=== PATIENT | male | born 1995 | race Caucasian/White ===

== ENCOUNTER 2017-03-03 13:51 | Emergency (ER) | payer OTHER ==
[~2017-03-03] VITALS: Ht 182.9 cm; Wt 72.5 kg
[2017-03-03 13:55] VITALS: BP 168/91; PULSE 148; RESP 28; TEMP 99; O2SAT 28
[2017-03-03] MEDS ORDERED: SODIUM CHLOR 0.9% 1000 ML INJ 1,000 ML IV SCH (14:55)
--- NOTE | 2017-03-03 14:59 | PD ---
HPI Chief Complaint: GI Complaint Time Seen by Provider: 14:54 Travel History International Travel<30 days: No Contact w/Intl Traveler<30days: No Traveled to known affect area: No History of Present Illness HPI 21-year-old male with history of heroin use and alcohol abuse, presents to the ER today because he has had intermittent episodes of nausea and vomiting for several weeks, states that he got worse today, he is vomiting up multiple episodes of dark red blood. He states he always has diarrhea but has not yet nose any black stools or blood in the stools. He states that he gets abdominal discomfort and then vomiting, is not having current abdominal pain. He denies any fevers or any other symptoms. Modifying Factors: None Associated Signs & Symptoms: Nausea, vomiting, abdominal cramping and diarrhea, blood in the vomit Risk Factors: Alcohol use PFSH Past Medical History Medical History: Denies Significant Hx Past Surgical History Surgical History: No Previous Surgery Social History Tobacco Use: No Allergies-Medications (Allergen,Severity, Reaction): Coded Allergies: No Known Allergies (Unverified , 03/03/17) Review of Systems Except as stated in HPI: all other systems reviewed are Neg Physical Exam Narrative GENERAL: Well-developed anxious appearing young white male patient who appears tremulous. Awake and oriented 3. SKIN: Focused skin assessment warm/dry. HEAD: Atraumatic. Normocephalic. EYES: Pupils equal and round. No scleral icterus. No injection or drainage. ENT: No nasal bleeding or discharge. Mucous membranes pink and moist. NECK: Trachea midline. No JVD. CARDIOVASCULAR: Regular rate and rhythm. No murmur appreciated. RESPIRATORY: No accessory muscle use. Clear to auscultation. Breath sounds equal bilaterally. GASTROINTESTINAL: Abdomen soft, moderate epigastric tenderness without guarding or rebound, nondistended. Hepatic and splenic margins not palpable. MUSCULOSKELETAL: No obvious deformities. No clubbing. No cyanosis. No edema. NEUROLOGICAL: Awake and alert. No obvious cranial nerve deficits. Motor grossly within normal limits. Normal speech. PSYCHIATRIC: Appropriate mood and affect; insight and judgment normal. Data Data Last Documented VS Vital Signs Date Time Temp Pulse Resp B/P Pulse Ox O2 Delivery O2 Flow Rate FiO2 03/03/17 15:14 83 22 135/77 95 Nasal Cannula 2 03/03/17 13:55 99.0 Orders Complete Blood Count With Diff (03/03/17 14:55) Comprehensive Metabolic Panel (03/03/17 14:55) Lipase (03/03/17 14:55) Prothrombin Time / Inr (Pt) (03/03/17 14:55) Act Partial Throm Time (Ptt) (03/03/17 14:55) Alcohol (Ethanol) (03/03/17 14:55) Type And Screen (03/03/17 14:55) Abdomen, Flat & Upright (03/03/17 14:55) Ecg Monitoring (03/03/17 14:55) Iv Access Insert/Monitor (03/03/17 14:55) Oximetry (03/03/17 14:55) Ondansetron Inj (Zofran Inj) (03/03/17 15:00) Pantoprazole Inj (Protonix Inj) (03/03/17 15:00) Sodium Chlor 0.9% 1000 Ml Inj (Ns 1000 M (03/03/17 14:55) Sodium Chloride 0.9% Flush (Ns Flush) (03/03/17 15:00) Lorazepam Inj (Ativan Inj) (03/03/17 15:00) Ct Abd/Pel W Iv Contrast(Rout) (03/03/17 16:29) Iohexol 350 Inj (Omnipaque 350 Inj) (03/03/17 17:28) Labs Laboratory Tests Test 03/03/17 15:00 White Blood Count 8.4 TH/MM3 Red Blood Count 4.60 MIL/MM3 Hemoglobin 15.8 GM/DL Hematocrit 45.8 % Mean Corpuscular Volume 99.5 FL Mean Corpuscular Hemoglobin 34.3 PG Mean Corpuscular Hemoglobin 34.4 % Concent Red Cell Distribution Width 12.5 % Platelet Count 203 TH/MM3 Mean Platelet Volume 9.5 FL Neutrophils (%) (Auto) 82.6 % Lymphocytes (%) (Auto) 8.2 % Monocytes (%) (Auto) 8.2 % Eosinophils (%) (Auto) 0.7 % Basophils (%) (Auto) 0.3 % Neutrophils # (Auto) 7.0 TH/MM3 Lymphocytes # (Auto) 0.7 TH/MM3 Monocytes # (Auto) 0.7 TH/MM3 Eosinophils # (Auto) 0.1 TH/MM3 Basophils # (Auto) 0.0 TH/MM3 CBC Comment DIFF FINAL Differential Comment Prothrombin Time 10.7 SEC Prothromb Time International 1.0 RATIO Ratio Activated Partial 27.1 SEC Thromboplast Time Sodium Level 139 MEQ/L Potassium Level 3.6 MEQ/L Chloride Level 98 MEQ/L Carbon Dioxide Level 28.4 MEQ/L Anion Gap 13 MEQ/L Blood Urea Nitrogen 8 MG/DL Creatinine 0.86 MG/DL Estimat Glomerular Filtration 110 ML/MIN Rate Random Glucose 128 MG/DL Calcium Level 10.6 MG/DL Total Bilirubin 1.2 MG/DL Aspartate Amino Transf 92 U/L (AST/SGOT) Alanine Aminotransferase 89 U/L (ALT/SGPT) Alkaline Phosphatase 71 U/L Total Protein 8.3 GM/DL Albumin 4.9 GM/DL Lipase 118 U/L Ethyl Alcohol Level LESS THAN 3 MG/DL Blood Type A POSITIVE Antibody Screen NEGATIVE MDM Medical Decision Making Medical Screen Exam Complete: Yes Emergency Medical Condition: Yes Medical Record Reviewed: Yes Interpretation(s) Laboratory Tests Test 03/03/17 15:00 Mean Corpuscular Hemoglobin 34.3 PG (27.0-34.0) Neutrophils (%) (Auto) 82.6 % (16.0-70.0) Lymphocytes (%) (Auto) 8.2 % (9.0-44.0) Monocytes (%) (Auto) 8.2 % (0.0-8.0) Lymphocytes # (Auto) 0.7 TH/MM3 (1.0-4.8) Random Glucose 128 MG/DL (74-106) Calcium Level 10.6 MG/DL (8.5-10.1) Total Bilirubin 1.2 MG/DL (0.2-1.0) Aspartate Amino Transf 92 U/L (15-37) (AST/SGOT) Alanine Aminotransferase 89 U/L (12-78) (ALT/SGPT) Total Protein 8.3 GM/DL (6.4-8.2) Last 24 hours Impressions Abdomen X-Ray 03/03/17 [id number] Signed Impressions: Service Date/Time: February 15:53 - CONCLUSION: Unremarkable bowel gas pattern. Chris Tabares MD Differential Diagnosis Nausea, vomiting, abdominal pains, diarrhea, blood in the vomitgastritis versus gastroenteritis versus GI bleeding versus pancreatitis versus alcohol withdrawal versus opiate withdrawal versus dehydration versus metabolic issues Narrative Course Patient was given Ativan for alcohol withdrawal and his tremors and tachycardia went away. Patient admits he has had DTs in the past. Lab work shows liver enzyme elevations likely secondary to alcohol abuse. CAT scan did not reveal any signs of acute processes. At this point, I have talked to the patient regarding his issues and have offered to admit him for alcohol withdrawal and GI bleed. There is concern about worsening and GI bleeding as well as withdrawal symptoms. However, he is refusing at this time. I have also suggested rehabilitation for him but he is also declining because he states that he had to pay for rehabilitation before and he owes $47,000 which she cannot pay. At this point, he is awake, alert, oriented 3. I have talked him about possible risk of DTs and , worsening and GI bleed and morbidities. However, he states understanding and does not want to stay in the hospital either for further evaluation and observation. He will need to follow-up with a GI doctor as an outpatient regarding this issue. He will need further rehabilitation help. Patient states understanding and wants to be released. He should return for any worsening in symptoms as necessary. Diagnosis Primary Impression: GI bleeding Additional Impressions: Alcohol withdrawal Opiate withdrawal Referrals: Alvin Dubon MD Med/Other Pt SpecificInfo: Prescription(s) given Scripts Ondansetron Odt (Zofran Odt)4 Mg Tab4 Mg SL Q6HR PRN (Nausea/Vomiting) #12 TAB Ref 0 Prov:Karoline Pearce MD 03/03/17 Chlordiazepoxide 25 Mg Cap25 Mg PO QID PRN (Anxiety) #30 CAP Ref 0 Prov:Karoline Pearce MD 03/03/17 Pantoprazole (Protonix)40 Mg Tab40 Mg PO DAILY #30 TAB Ref 0 Prov:Karoline Pearce MD 03/03/17 Disposition: 01 DISCHARGE HOME Condition: Stable Karolien Pearce MD Mar 03, 2017 14:59
[2017-03-03] MEDS ORDERED: SODIUM CHLORIDE 0.9% FLUSH 10 ML FLUSH IVF PRN (15:00)
[2017-03-03] MEDS ORDERED: PANTOPRAZOLE SODIUM 40 MG VIAL IVP ONE (15:00)
[2017-03-03] MEDS ORDERED: ONDANSETRON HCL 4 MG/2 ML VIAL IVP ONE (15:00)
[2017-03-03] MEDS ORDERED: LORazepam 2 MG/ML VIAL IV PUSH ONE (15:00)
[2017-03-03 15:01] VITALS: O2SAT 93
[2017-03-03 15:14] VITALS: BP 135/77; PULSE 83; RESP 22; O2SAT 95
[2017-03-03 15:30] LABS: BASOPHIL % 0.3 % (0.0-2.0); EOSINOPHIL # 0.1 TH/MM3 (0-0.4); EOSINOPHIL % 0.7 % (0.0-4.0); HEMATOCRIT 45.8 % (39.0-51.0); HEMO FLAGS DIFF FINAL; LYMPH % 8.2 % (9.0-44.0); LYMPHOCYTE # 0.7 TH/MM3 (1.0-4.8); MEAN CELL VOLUME 99.5 FL (80.0-100.0); MEAN CORPUSCULAR HEMOGLOBIN 34.3 PG (27.0-34.0); MEAN CORPUSCULAR HGB CONC 34.4 % (32.0-36.0); MONO % 8.2 % (0.0-8.0); NEUT % 82.6 % (16.0-70.0); PLATELET COUNT 203 TH/MM3 (150-450); RED CELL DISTRIBUTION WIDTH 12.5 % (11.6-17.2); WHITE BLOOD COUNT 8.4 TH/MM3 (4.0-11.0)
[2017-03-03 15:51] LABS: ALT (GPT) 89 U/L (12-78); ANION GAP 13 MEQ/L (5-15); APTT (PATIENT) 27.1 SEC (24.3-30.1); AST (GOT) 92 U/L (15-37); BICARBONATE 28.4 MEQ/L (21.0-32.0); BLOOD UREA NITROGEN 8 MG/DL (7-18); CHLORIDE 98 MEQ/L (98-107); GLOMERULAR FILTRATION RATE 110 ML/MIN (>89); POTASSIUM 3.6 MEQ/L (3.5-5.1); PROTHROMBIN TIME - PATIENT 10.7 SEC (9.8-11.6); SODIUM (NA) 139 MEQ/L (136-145)
[2017-03-03 15:54] LABS: ALKALINE PHOSPHATASE 71 U/L (45-117); TOTAL BILIRUBIN ADULT 1.2 MG/DL (0.2-1.0)
--- NOTE | 2017-03-03 16:28 | RADRPT ---
EXAM DATE/TIME: 03/03/2017 15:53 [facility] COMPARISON: No previous studies available for comparison. INDICATIONS : Vomiting blood. MEDICAL HISTORY : None. SURGICAL HISTORY : None. ENCOUNTER: Initial ACUITY: 1 day PAIN SCORE: 6/10 LOCATION: Right abdomen. FINDINGS: Supine and upright views of the abdomen were performed. The abdominal bowel gas pattern is normal. No air fluid levels are seen. No abnormal masses, calcifications, or organomegaly is seen. The visu alized lower lungs are clear. No evidence of free intraperitoneal gas. The osseous structures are u nremarkable. CONCLUSION: Unremarkable bowel gas pattern. Chris Tabares MD on March 03, 2017 at 16:26 Board Certified Radiologist. This report was verified electronically.
[2017-03-03] MEDS ORDERED: IOHEXOL 350 MG/ML 10 ML VIAL (for RAD DIAG) IV ONE (17:28)
--- NOTE | 2017-03-03 17:37 | RADRPT ---
EXAM DATE/TIME: 03/03/2017 17:17 [facility] COMPARISON: No previous studies available for comparison. INDICATIONS : Vomiting dark red blood IV CONTRAST: 100 cc Omnipaque 350 (iohexol) IV ORAL CONTRAST: No oral contrast ingested. RADIATION DOSE: 9.96 CTDIvol (mGy) MEDICAL HISTORY : None SURGICAL HISTORY : None. ENCOUNTER: Initial ACUITY: 1 day PAIN SCALE: 6/10 LOCATION: Abdomen TECHNIQUE: Volumetric scanning of the abdomen and pelvis was performed. Using automated exposure control and ad justment of the mA and/or kV according to patient size, radiation dose was kept as low as reasonably achievable to obtain optimal diagnostic quality images. FINDINGS: LOWER LUNGS: The visualized lower lungs are clear. LIVER: Homogeneous density without lesion. There is no dilation of the biliary tree. No calcified gallston es. There is moderate hepatic steatosis. The gallbladder is unremarkable. SPLEEN: Normal size without lesion. PANCREAS: Within normal limits. KIDNEYS: Normal in size and shape. There is no mass, stone or hydronephrosis. ADRENAL GLANDS: Within normal limits. VASCULAR: There is no aortic aneurysm. BOWEL/MESENTERY: The stomach, small bowel, and colon demonstrate no acute abnormality. There is no free intraperitone al air or fluid. ABDOMINAL WALL: Within normal limits. RETROPERITONEUM: There is no lymphadenopathy. BLADDER: No wall thickening or mass. REPRODUCTIVE: Within normal limits. INGUINAL: There is no lymphadenopathy or hernia. MUSCULOSKELETAL: Within normal limits for patient age. CONCLUSION: 1. 1.gas pattern is unremarkable with no inflammatory change or obstruction. No oral contrast was giv en limiting the sensitivity. 2. Moderate hepatic steatosis. 3. Unremarkable gallbladder. Chris Tabares MD on March 03, 2017 at 17:33 Board Certified Radiologist. This report was verified electronically.
[2017-03-03] MEDS ORDERED: PROT40TA PO (17:45)
[2017-03-03] MEDS ORDERED: ZOFR4TAB3 SL (17:45)
[2017-03-03] MEDS ORDERED: CHLO25CA2 PO (17:45)
[2017-03-03 18:25] VITALS: BP 124/74; PULSE 95; RESP 24; O2SAT 98
== END 2017-03-03 19:16 | disposition home or self-care (01) ==
LOC: NEPC 13:51
DX: K92.2 Gastrointestinal hemorrhage, unspecified (principal); F11.23 Opioid dependence with withdrawal; R00.0 Tachycardia, unspecified; G25.1 Drug-induced tremor
CPT/HCPCS: 74020; 74177; 80053; 80307; 83690; 85025; 85610; 85730; 86850; 86900; 86901; 96361; 96374; 96375; 99285; C9113; J2060; J2405; J7030; Q9967

== ENCOUNTER 2017-05-13 13:19 | Emergency (ER) | payer OTHER ==
[~2017-05-13] VITALS: Ht 182.9 cm; Wt 75.0 kg
[~2017-05-13 13:19] MED LIST: CHLO25CA2 PO; PROT40TA PO; ZOFR4TAB3 SL
[2017-05-13 13:21] VITALS: BP 145/86; PULSE 148; RESP 24; TEMP 98.8; O2SAT 98
--- NOTE | 2017-05-13 13:41 | PD ---
Physical Exam Time Seen by Provider: 13:37 Narrative 21yo M c/o alcohol withdrawal. Trind to drink alcohol 1 hour ago and has been vomiting all morning. Says he doesn't want to start seizing; has hx of seizing from withdrawal. Repots smoking marijuana. HR elevated 140-170 in triage. Patient seen in triage. VS reviewed. Patient to med bed from triage. Data Data Last Documented VS Vital Signs Date Time Temp Pulse Resp B/P Pulse Ox O2 Delivery O2 Flow Rate FiO2 05/13/17 13:21 98.8 148 24 145/86 98 Room Air MDM Supervised Visit with ROLAND: Cherry Onofre May 13, 2017 13:41
[2017-05-13] MEDS ORDERED: SODIUM CHLOR 0.9% 1000 ML INJ 1,000 ML IV SCH ×2 (13:48)
--- NOTE | 2017-05-13 13:52 | PD ---
HPI Chief Complaint: Alcohol/Drug Intoxication Time Seen by Provider: 13:39 Travel History International Travel<30 days: No Contact w/Intl Traveler<30days: No Traveled to known affect area: No History of Present Illness HPI This is a 21-year-old male alcoholic who presents for evaluation nausea, vomiting, withdrawal symptoms. Past 3 days he's had nausea and vomiting. 3-5 episodes of emesis daily. Nonbloody. He reports severe withdrawal symptoms when he does not drink. He typically drinks about 16 0 today. This morning he had no beer at home. He went to go buy some at the store and when he drank it he vomited it up. He is currently having some tremors and nausea. He denies any acute abdominal pain. He endorses chronic diarrhea. Denies any chest pain or shortness of breath, palpitations. He reports a history of withdrawal seizures in the past. He has no other complaints. [facility] Past Medical History Anxiety: Yes Depression: Yes Past Surgical History Other Surgery: Yes (COLONOSCOPY) Social History Alcohol Use: Yes (8-12 BEERS DAILY) Tobacco Use: No Substance Use: Yes (HEROIN, POT) Allergies-Medications (Allergen,Severity, Reaction): Coded Allergies: No Known Allergies (Unverified , 05/13/17) Reported Meds & Prescriptions Reported Meds & Active Scripts Active Zofran (Ondansetron HCl) 4 Mg Tab 4 Mg PO Q6HR PRN Chlordiazepoxide HCl 25 Mg Capsule 1 Tab PO Q3HR NEB PRN Review of Systems Except as stated in HPI: all other systems reviewed are Neg Physical Exam Narrative GENERAL: Well-developed well-nourished male who is anxious, tremulous, tachycardic. SKIN: Warm and dry. HEAD: Atraumatic. Normocephalic. EYES: Pupils equal and round. No scleral icterus. No injection or drainage. ENT: No nasal bleeding or discharge. Mucous membranes pink and moist. NECK: Trachea midline. No JVD. CARDIOVASCULAR: Regular rate and rhythm. No murmur appreciated. RESPIRATORY: No accessory muscle use. Clear to auscultation. Breath sounds equal bilaterally. GASTROINTESTINAL: Abdomen soft, mild epigastric tenderness no guarding. MUSCULOSKELETAL: No obvious deformities. No edema. NEUROLOGICAL: Awake and alert. No obvious cranial nerve deficits. Motor grossly within normal limits. Normal speech. PSYCHIATRIC: Appropriate mood and affect; insight and judgment normal. Data Data Last Documented VS Vital Signs Date Time Temp Pulse Resp B/P Pulse Ox O2 Delivery O2 Flow Rate FiO2 05/13/17 14:06 94 16 133/90 100 Room Air 05/13/17 13:21 98.8 Orders Complete Blood Count With Diff (05/13/17 13:48) Comprehensive Metabolic Panel (05/13/17 13:48) Lipase (05/13/17 13:48) Iv Access Insert/Monitor (05/13/17 13:48) Ecg Monitoring (05/13/17 13:48) Oximetry (05/13/17 13:48) Sodium Chlor 0.9% 1000 Ml Inj (Ns 1000 M (05/13/17 13:48) Sodium Chloride 0.9% Flush (Ns Flush) (05/13/17 14:00) Electrocardiogram (05/13/17 13:48) Sodium Chlor 0.9% 1000 Ml Inj (Ns 1000 M (05/13/17 13:48) Ondansetron Inj (Zofran Inj) (05/13/17 14:00) Lorazepam Inj (Ativan Inj) (05/13/17 14:00) Alcohol (Ethanol) (05/13/17 13:48) Magnesium (Mg) (05/13/17 13:48) Thiamine Inj (Thiamine Inj) (05/13/17 14:00) Labs Laboratory Tests Test 05/13/17 14:08 White Blood Count 8.9 TH/MM3 Red Blood Count 4.91 MIL/MM3 Hemoglobin 16.6 GM/DL Hematocrit 48.7 % Mean Corpuscular Volume 99.1 FL Mean Corpuscular Hemoglobin 33.8 PG Mean Corpuscular Hemoglobin 34.1 % Concent Red Cell Distribution Width 12.9 % Platelet Count 334 TH/MM3 Mean Platelet Volume 8.0 FL Neutrophils (%) (Auto) 61.8 % Lymphocytes (%) (Auto) 25.3 % Monocytes (%) (Auto) 12.1 % Eosinophils (%) (Auto) 0.5 % Basophils (%) (Auto) 0.3 % Neutrophils # (Auto) 5.5 TH/MM3 Lymphocytes # (Auto) 2.2 TH/MM3 Monocytes # (Auto) 1.1 TH/MM3 Eosinophils # (Auto) 0.0 TH/MM3 Basophils # (Auto) 0.0 TH/MM3 CBC Comment DIFF FINAL Differential Comment Sodium Level 138 MEQ/L Potassium Level 4.0 MEQ/L Chloride Level 102 MEQ/L Carbon Dioxide Level 27.8 MEQ/L Anion Gap 8 MEQ/L Blood Urea Nitrogen 3 MG/DL Creatinine 0.86 MG/DL Estimat Glomerular Filtration 110 ML/MIN Rate Random Glucose 81 MG/DL Calcium Level 9.7 MG/DL Magnesium Level 2.0 MG/DL Total Bilirubin 0.4 MG/DL Aspartate Amino Transf 100 U/L (AST/SGOT) Alanine Aminotransferase 91 U/L (ALT/SGPT) Alkaline Phosphatase 81 U/L Total Protein 8.9 GM/DL Albumin 4.6 GM/DL Lipase 141 U/L Ethyl Alcohol Level 207 MG/DL [facility] Medical Decision Making Medical Screen Exam Complete: Yes Emergency Medical Condition: Yes Medical Record Reviewed: Yes Interpretation(s) EKG reveals sinus rhythm, rate 88 CBC unremarkable CMP AST 100, ALT 91 Alcohol level 207 Differential Diagnosis Dehydration, electrolyte abnormality, alcohol withdrawal, gastritis, pancreatitis, sepsis, SVT, atrial fibrillation Narrative Course 21-year-old alcoholic presents with nausea and vomiting over the past 3 days. On initial examination is tachycardic, tremulous, nauseous. Plan is for basic lab work. He was given 2 L of IV fluids, 2 mg of Ativan, thiamine and 4 mg of Zofran. Upon reexamination the patient feels significantly improved. His heart rate is in the high 80s. His nausea has improved. The plan will be to discharge the patient with a course of Librium for withdrawal symptoms as well as Zofran for nausea. He was given a packet of resources in regards to local rehabilitation centers. He is stable for discharge. Diagnosis Primary Impression: Alcohol withdrawal Qualified Code: F10.230 - Alcohol withdrawal, uncomplicated Referrals: [facility] Additional Instructions: As discussed, Librium for withdrawal symptoms. Quitting alcohol "cold turkey" can have multiple side effects, some severe such as hallucinations, seizures. It is important of follow-up with a rehabilitation center such as [facility] to help facilitate your care. Return for any acutely new or worsening symptoms. Med/Other Pt SpecificInfo: Prescription(s) given Scripts Ondansetron (Zofran)4 Mg Tab4 Mg PO Q6HR PRN (NAUSEA OR VOMITING) #20 TAB Ref 0 Prov:Ulysses Garrison MD 05/13/17 Chlordiazepoxide HCl 25 Mg Capsule1 Tab PO Q3HR NEB PRN (WITHDRAWAL) #30 Prov:Ulysses Garrison MD 05/13/17 Disposition: 01 DISCHARGE HOME Condition: Stable Tha Barrios May 13, 2017 13:52
[2017-05-13] MEDS ORDERED: ONDANSETRON HCL 4 MG/2 ML VIAL IV PUSH ONE (14:00)
[2017-05-13] MEDS ORDERED: LORazepam 2 MG/ML VIAL IV PUSH ONE (14:00)
[2017-05-13] MEDS ORDERED: THIAMINE INJ 100 MG in SODIUM CHLORIDE 0.9% INJ 100 ML IV ONE (14:00)
[2017-05-13] MEDS ORDERED: SODIUM CHLORIDE 0.9% FLUSH 10 ML FLUSH IV FLUSH PRN (14:00)
[2017-05-13 14:06] VITALS: BP 133/90; PULSE 94; RESP 16; O2SAT 100
[2017-05-13 14:18] LABS: AUTOMATED NEUTROPHIL # 5.5 TH/MM3 (1.8-7.7); BASOPHIL % 0.3 % (0.0-2.0); EOSINOPHIL % 0.5 % (0.0-4.0); HEMATOCRIT 48.7 % (39.0-51.0); HEMO FLAGS DIFF FINAL; LYMPH % 25.3 % (9.0-44.0); LYMPHOCYTE # 2.2 TH/MM3 (1.0-4.8); MEAN CELL VOLUME 99.1 FL (80.0-100.0); MEAN CORPUSCULAR HEMOGLOBIN 33.8 PG (27.0-34.0); MEAN CORPUSCULAR HGB CONC 34.1 % (32.0-36.0); MONO % 12.1 % (0.0-8.0); NEUT % 61.8 % (16.0-70.0); PLATELET COUNT 334 TH/MM3 (150-450); RED BLOOD COUNT 4.91 MIL/MM3 (4.50-5.90); RED CELL DISTRIBUTION WIDTH 12.9 % (11.6-17.2); WHITE BLOOD COUNT 8.9 TH/MM3 (4.0-11.0)
[2017-05-13 14:36] LABS: ALKALINE PHOSPHATASE 81 U/L (45-117); ALT (GPT) 91 U/L (12-78); ANION GAP 8 MEQ/L (5-15); AST (GOT) 100 U/L (15-37); BICARBONATE 27.8 MEQ/L (21.0-32.0); BLOOD UREA NITROGEN 3 MG/DL (7-18); CHLORIDE 102 MEQ/L (98-107); GLOMERULAR FILTRATION RATE 110 ML/MIN (>89); SODIUM (NA) 138 MEQ/L (136-145); TOTAL BILIRUBIN ADULT 0.4 MG/DL (0.2-1.0)
[2017-05-13] MEDS ORDERED: CHLO25CA9 PO (15:09)
[2017-05-13] MEDS ORDERED: ZOFR4TAB PO (15:10)
--- NOTE | 2017-05-14 16:43 | EKG ---
Date Performed: 05/13/2017 Time Performed: 14:42:12 PTAGE: 21 years EKG: Sinus rhythm BASELINE ARTIFACT NO PREVIOUS TRACING DOCTOR: Leobardo Lin Interpretating Date/Time 05/14/2017 16:42:06
== END 2017-05-13 15:45 | disposition home or self-care (01) ==
LOC: NEPC 13:19
DX: F10.239 Alcohol dependence with withdrawal, unspecified (principal); R11.2 Nausea with vomiting, unspecified; R19.7 Diarrhea, unspecified; R00.0 Tachycardia, unspecified; F32.9 Major depressive disorder, single episode, unspecified; F41.9 Anxiety disorder, unspecified; Z79.899 Other long term (current) drug therapy
CPT/HCPCS: 80053; 80307; 83690; 83735; 85025; 93005; 96361; 96365; 96375; 99284; J2060; J2405; J3411; J7030

== ENCOUNTER 2018-12-25 15:13 | Inpatient (IN) ==
[2018-12-25] MEDS ORDERED: Sod Chloride 0.9% Inj 1,000 ML IV.SIG SCH (15:45)
--- NOTE | 2018-12-25 16:05 | ED ---
HPI General Chief Complaint: Psychiatric Symptoms Stated Complaint: Psych eval / [facility] Time Seen by Provider: 12/25/18 15:43 Source: patient and police Mode of arrival: other (police) Limitations: no limitations History of Present Illness HPI Narrative: Patient is a 23-year-old male [facility] [place] [facility] for psychiatric evaluation. Patient allegedly made a statement to his sister stating "I am ready to " and that he is feeling suicidal. Allegedly he stated to the officer that 3 days ago he had suicidal thoughts and has had them on and off since he was 6 years old. Patient is unable to determine for himself whether examination is necessary. Patient reports to me that he has felt depressed since he was 6 years old, he has been on antidepressants since age 11. He reports that he always has feelings and thoughts about suicide but would never act on them. He states that if he wanted to he would have killed himself a long time ago. Patient reports that he has plans with his father who is coming to [facility] from [place] tomorrow. He denies any illicit drug use. He does report that he is not sleeping well, he does report eating 3 meals per day however he states he has irritable bowel syndrome and is not sure what he is absorbing. He has no physical complaints at this time. He does report feeling very anxious currently. Patient states he is trialed multiple antidepressants in the past including Celexa, Wellbutrin , Xanax. MD complaint: Reports suicidal ideation and feels depressed Duration: constant and changing over time History of same: Yes Related Data Home Medications Medication Instructions Recorded Confirmed alprazolam 2 mg PO PRN PRN 12/25/18 12/25/18 Allergies Allergy/AdvReac Type Severity Reaction Status Date / Time No Known Allergies Allergy Verified 12/25/18 16:10 Review of Systems ROS: all other systems reviewed are negative [facility] Medical History Medical History Asthma (Acute) IBS (irritable bowel syndrome) (Acute) Anxiety (Acute) Social History Social History Substance History: Active Abuse Second Hand Smoke Exposure: Yes Smoking Status: Current every day smoker Tobacco Type: Cigarettes How Often Do You Have a Drink Containing Alcohol: 2 to 4 times a month Recent Travel in [facility] within the Last 8 Weeks: No Recent Out of Country Travel within the Last 8 Weeks: No Substance Abuse Detail Marijuana: Substance Use Status: Active Route Used Substance Abuse: Inhalation Substance Frequency: Once a month Last Used: Last Substance Abuse Comment: "I have panic attacks and it helps" Reason for Use: Calm Down Exam Narrative Exam Narrative: GENERAL: Thin, well-developed, alert male. Appears anxious, no acute distress. SKIN: Focused skin assessment warm/dry. HEAD: Atraumatic. Normocephalic. EYES: Pupils equal and round. No scleral icterus. No injection or drainage. ENT: No nasal bleeding or discharge. Mucous membranes pink and moist. NECK: Trachea midline. No JVD. CARDIOVASCULAR: Tachycardic. No murmur appreciated. RESPIRATORY: No accessory muscle use. Clear to auscultation. Breath sounds equal bilaterally. GASTROINTESTINAL: Abdomen soft, non-tender, nondistended. Hepatic and splenic margins not palpable. MUSCULOSKELETAL: No obvious deformities. No clubbing. No cyanosis. No edema. NEUROLOGICAL: Awake and alert. No obvious cranial nerve deficits. Motor grossly within normal limits. Normal speech. PSYCHIATRIC: Depressed mood and anxious affect; insight and judgment normal. Course Initial Documented Vital Signs Temperature 98.5 F 12/25/18 15:22 Pulse Rate 143 H 12/25/18 15:22 Respiratory Rate 18 12/25/18 15:22 Blood Pressure 112/68 12/25/18 15:22 Pulse Oximetry 100 12/25/18 15:22 Last Documented Vital Signs Temperature 98.7 F 12/27/18 06:03 Pulse Rate 95 H 12/27/18 06:03 Respiratory Rate 17 12/27/18 06:03 Blood Pressure 127/78 12/27/18 06:03 Pulse Oximetry 98 12/27/18 06:03 Medical Decision Making [facility] Narrative Medical decision making narrative: Patient is a 23-year-old male presenting for psychiatric evaluation under [place] act. Patient is tachycardic on arrival, he is anxious appearing. Ativan 1 mg IM ordered. Mental health screening discussed with the patient. Psychiatric screen ordered. Labs reviewed, potassium 3.4, oral replacement ordered. Patient's blood alcohol level 67. Mild transaminitis. At this time patient is medically cleared for psychiatric evaluation. Medical Screen Exam Complete: Yes Emergency Medical Condition: Yes Differential Diagnosis Differential Diagnosis: Mood disorder versus metabolic abnormality versus depression versus suicidal ideations versus other Lab Data Lab results reviewed: Yes I reviewed the patient's lab results. Result diagrams: 12/25/18 15:28 12/25/18 15:28 Lab Results 12/25/18 12/25/18 12/25/18 Range/Units 15:28 15:28 20:00 WBC 6.5 (4.0-11.0) th/mm3 RBC 4.11 L (4.50-5.90) mil/mm3 Hgb 15.0 (13.0-17.0) gm/dL Hct 43.2 (39.0-51.0) % MCV 105.0 H (80.0-100.0) fL MCH 36.5 H (27.0-34.0) pg MCHC 34.7 (32.0-36.0) % RDW 12.1 (11.6-17.2) % Plt Count 266 (150-450) th/mm3 MPV 9.8 (7.0-11.0) fL Neut % (Auto) 37.4 (16.0-70.0) % Lymph % (Auto) 46.9 H (9.0-44.0) % [place] % (Auto) 7.4 (0.0-8.0) % Eos % (Auto) 7.0 H (0.0-4.0) % Baso % (Auto) 1.3 (0.0-2.0) % Neut # (Auto) 2.4 (1.8-7.7) th/mm3 Lymph # (Auto) 3.1 (1.0-4.8) th/mm3 [place] # (Auto) 0.5 (0.0-0.9) th/mm3 Eos # (Auto) 0.5 H (0.0-0.4) th/mm3 Baso # (Auto) 0.1 (0.0-0.2) th/mm3 WBC Differential . Differential Comment Auto diff final Sodium 138 (136-145) meq/L Potassium 3.4 L (3.5-5.1) meq/L Chloride 102 (98-107) meq/L Carbon Dioxide 24.7 (21.0-32.0) meq/L Anion Gap 11 (5-15) meq/L BUN 4 L (7-18) mg/dL Creatinine 0.97 (0.60-1.30) mg/dL Estimated GFR Greater than 89 (>89) mL/min Random Glucose 89 (74-106) mg/dL Calcium 9.5 (8.5-10.1) mg/dL Magnesium 1.9 (1.5-2.5) mg/dL Total Bilirubin 1.2 H (0.2-1.0) mg/dL AST 160 H (15-37) U/L ALT 127 H (12-78) U/L Alkaline Phosphatase 131 H (45-117) U/L Total Protein 8.6 H (6.4-8.2) g/dL Albumin 4.9 (3.4-5.0) g/dL TSH 1.110 (0.358-3.740) uIU/mL Urine Opiates Screen Neg (Neg) Ur Barbiturates Screen Neg (Neg) Ur Amphetamines Screen Neg (Neg) U Benzodiazepines Scrn Pos H (Neg) Urine Cocaine Screen Neg (Neg) U Cannabinoids Screen Pos H (Neg) Serum Alcohol 67 H (0-5) mg/dL Discharge Plan Discharge Disposition Patient Disposition: ED Admit(ED Internal Use Only) Discharge Condition Condition: Stable Discharge Order Discharge Orders: ED Use Only Admit Order (Routine); Ordered 12/25/18 Ordered By: Lukas Vann Discharge Details Diagnosis: Depression, major Physicians Team ED Provider: Kenyetta Mccracken ED Midlevel Provider: Annalee Faiban Primary Care Provider: Primary Care Cami Garza Attending Provider: Naren Diaz Other Providers: KarenrISA High Service Status ED Status: Left Department Discharge Information Discharge Date/Time: 12/25/18 21:50
[2018-12-25] MEDS ORDERED: ALPRAZolam 0.5 MG Tablet PO ONE (16:10)
[2018-12-25 18:16] LABS: Baso # (Auto) 0.1 th/mm3 (0.0-0.2); Baso % (Auto) 1.3 % (0.0-2.0); Eos # (Auto) 0.5 th/mm3 (0.0-0.4); Hematocrit 43.2 % (39.0-51.0); Lymph # (Auto) 3.1 th/mm3 (1.0-4.8); Lymph % (Auto) 46.9 % (9.0-44.0); Mean Corpuscular HGB Conc 34.7 % (32.0-36.0); Mean Corpuscular Hemoglobin 36.5 pg (27.0-34.0); Mean Platelet Volume 9.8 fL (7.0-11.0); Mono # (Auto) 0.5 th/mm3 (0.0-0.9); Mono % (Auto) 7.4 % (0.0-8.0); Neut # (Auto) 2.4 th/mm3 (1.8-7.7); Neut % (Auto) 37.4 % (16.0-70.0); Platelet Count 266 th/mm3 (150-450); Red Blood Count 4.11 mil/mm3 (4.50-5.90); Red Cell Distribution Width 12.1 % (11.6-17.2); White Blood Count 6.5 th/mm3 (4.0-11.0)
[2018-12-25 18:24] LABS: Albumin 4.9 g/dL (3.4-5.0); Anion Gap 11 meq/L (5-15); Aspartate Aminotransferase 160 U/L (15-37); Blood Urea Nitrogen 4 mg/dL (7-18); Calcium 9.5 mg/dL (8.5-10.1); Carbon Dioxide 24.7 meq/L (21.0-32.0); Chloride 102 meq/L (98-107); Glomerular Filtration Rate Greater Than 89 mL/min (>89); Glucose,Random 89 mg/dL (74-106); Magnesium 1.9 mg/dL (1.5-2.5); Potassium 3.4 meq/L (3.5-5.1); Sodium 138 meq/L (136-145)
[2018-12-25 18:25] LABS: Alanine Aminotransferase 127 U/L (12-78)
[2018-12-25 18:34] LABS: Alcohol 67 mg/dL (0-5)
[2018-12-25 18:35] LABS: Alkaline Phosphatase 131 U/L (45-117); Total Protein 8.6 g/dL (6.4-8.2)
--- NOTE | 2018-12-25 18:36 | ED ---
HPI - Psych - General Source: patient, police Mode of arrival: other (police) Limitations: no limitations - History of Present Illness MD complaint: suicidal ideation Duration: constant, changing over time History of same: Yes Relieving factors: none Exacerbating factors: none Context: recent alcohol abuse Associated psychiatric symptoms: none Associated symptoms: denies other symptoms Treatments prior to arrival: none - General Chief Complaint: Psychiatric Symptoms Stated Complaint: Psych eval / [employer] Time Seen by Provider: 12/25/18 15:43 - History of Present Illness HPI Narrative: This patient is a 23 years old male who came into the ED on a Romo act initiated by employment law specialist. According to the patient he had conversations with his sister who is a mental health counselor and living in [place]. During the conversation the patient voiced repeated suicidal ideations and his sister reported the patient's intentions to the police. The police then Romo acted him and brought him to this ED. The patient presents as a slender male male obviously anxious crying and sobbing. He repeatedly denies any suicidal thoughts but stated that he is depressed on all the antidepressant medication that he tried and failed. He is unemployed and is supported by his mother and stated that these enrolled in the [employer] [facility] [employer]. The patient stated that he was first diagnosed with depression at the age of [age] years old and have been struggling with his since. He last took antidepressant medication about 2 months ago after his father dropped him from his health insurance. Patient minimized his alcohol use to twice monthly. His lab report is showing elevated level of AST and ALT reflecting a chronic alcohol use. His urine toxicology was positive for cocaine and benzodiazepine while his alcohol serum level was 67 mg/DL. This patient's speech is fluent and logical not reflecting any thought process disorder. Is feeling tone appears worried and mood is depressed. Patient repeatedly denies any suicidal thoughts. No hyperactivity, lethargy or behavioral disturbances are present. No alcohol withdrawal symptoms observed and patient is placed on CIWA monitoring. The patient denies any pain or any other somatic symptoms. (Lukas Vann) - Related Data Home Medications Medication Instructions Recorded Confirmed alprazolam 2 mg PO PRN PRN 12/25/18 12/25/18 Allergies Allergy/AdvReac Type Severity Reaction Status Date / Time No Known Allergies Allergy Verified 12/25/18 16:10 PMF - History History Provided By: Patient - Medical History Medical History: Medical History (Last Updated 12/25/18 @ 16:10 by Modesta Cadena RN) Asthma IBS (irritable bowel syndrome) Anxiety - Tobacco History Second Hand Smoke Exposure: Yes Tobacco Use In Past 30 Days: Yes Smoking Status: Current every day smoker Tobacco Type: Cigarettes - Alcohol History How Often Do You Have a Drink Containing Alcohol: 2 to 4 times a month - Substance Use History Substance History: Active Abuse - Substance Use Type Marijuana Status: Active Route Used: Inhalation Frequency: Once a month Last Used: Last Reason for Use: Calm Down Comment: "I have panic attacks and it helps" Alcohol Status: Active Route Used: By Mouth Reason for Use: Calm Down Comment: "couple times a month". Patient reports previous "alcohol problem", patient describes drinking "15 drinks in about three days...sometimes it was all 15 drinks in the same day". Patient reports "heavily drinking" from [employer] age 19-19 years old. Other Status: Active Route Used: By Mouth Comment: Patient reports smoking [employer] 7-10 cigarettes per day. - Travel History Recent Travel in the [facility] Within the Last 8 Weeks: No Recent Travel Out of the Country Within the Last 8 Weeks: No - Immunization History Tetanus Immunization: Unsure Psychiatric History - Psychiatric History Psychiatric Treatment History: History of Psychiatric Treatment History of Inpatient Treatment: No Firearms in Home: No - Legal History none (Lukas Vann) - Family Psychiatric History Patient denies any family history of mental illness. (Lukas Vann) Physical Exam - General Limitations: no limitations Mental Status Examination Appearance: Appropriate Consciousness: Alert Orientation: x4 Motor Activity: Normal gait Speech: Unremarkable Language: Adequate Fund of Knowledge: Adequate Memory: Unremarkable Mood: Sad Affect: Sad Thought Process & Associations: Intact, Logical, Goal directed Thought Content: Appropriate Hallucination Type: None Delusion Type: None Suicidal Ideation: No Suicidal Plan: No Suicidal Intention: No Homicidal Ideation: No Homicidal Plan: No Homicidal Intention: No Insight: Fair Judgment: Impulsive Initial Documented Vital Signs Temperature 98.5 F 12/25/18 15:22 Pulse Rate 143 H 12/25/18 15:22 Respiratory Rate 18 12/25/18 15:22 Blood Pressure 112/68 12/25/18 15:22 Pulse Oximetry 100 12/25/18 15:22 Last Documented Vital Signs Temperature 98.6 F 12/26/18 17:48 Pulse Rate 99 H 12/26/18 17:48 Respiratory Rate 20 12/26/18 17:48 Blood Pressure 121/65 12/26/18 17:48 Pulse Oximetry 100 12/26/18 17:48 MDM - Psych - Diagnosis (1) Depression, major Code(s): F32.9 - Major depressive disorder, single episode, unspecified Status : Acute (2) Alcohol-induced mood disorder Code(s): F10.94 - Alcohol use, unspecified with alcohol-induced mood disorder Status: Acute - Lab Data Result diagrams: 12/25/18 15:28 12/25/18 15:28 - MDM Narrative Medical decision making narrative: The patient gave this practitioner permission to meet with his father who was waiting in the lobby. I met with the father and he gave me a grim history of heavy abuse on alcohol and cocaine over the years. The father explain that the patient have exhausted most of the financial and emotional resources that the family had to offer him. His father stated that the patient is a pathological liar and a master of deception. According to him the patient should be enrolled in college for the last 2 years but that he have not done so but accepted the money given to him to be enrolled in school. The the patient father also showed me multiple text messages of the patient stating his suicidal intentions. His father is requesting that patient be admitted for stabilization and in the meantime he and his are looking about long-term hospital placement for him. The patient is receptive to the plan of inpatient admission. The Romo act would be remaining force and the patient will be admitted on the 2600 unit. (Lukas Vann) - Lab Data Lab Results 12/25/18 12/25/18 12/25/18 Range/Units 15:28 15:28 20:00 WBC 6.5 (4.0-11.0) th/mm3 RBC 4.11 L (4.50-5.90) mil/mm3 Hgb 15.0 (13.0-17.0) gm/dL Hct 43.2 (39.0-51.0) % MCV 105.0 H (80.0-100.0) fL MCH 36.5 H (27.0-34.0) pg MCHC 34.7 (32.0-36.0) % RDW 12.1 (11.6-17.2) % Plt Count 266 (150-450) th/mm3 MPV 9.8 (7.0-11.0) fL Neut % (Auto) 37.4 (16.0-70.0) % Lymph % (Auto) 46.9 H (9.0-44.0) % [place] % (Auto) 7.4 (0.0-8.0) % Eos % (Auto) 7.0 H (0.0-4.0) % Baso % (Auto) 1.3 (0.0-2.0) % Neut # (Auto) 2.4 (1.8-7.7) th/mm3 Lymph # (Auto) 3.1 (1.0-4.8) th/mm3 [place] # (Auto) 0.5 (0.0-0.9) th/mm3 Eos # (Auto) 0.5 H (0.0-0.4) th/mm3 Baso # (Auto) 0.1 (0.0-0.2) th/mm3 WBC Differential . Differential Comment Auto diff final Sodium 138 (136-145) meq/L Potassium 3.4 L (3.5-5.1) meq/L Chloride 102 (98-107) meq/L Carbon Dioxide 24.7 (21.0-32.0) meq/L Anion Gap 11 (5-15) meq/L BUN 4 L (7-18) mg/dL Creatinine 0.97 (0.60-1.30) mg/dL Estimated GFR Greater than 89 (>89) mL/min Random Glucose 89 (74-106) mg/dL Calcium 9.5 (8.5-10.1) mg/dL Magnesium 1.9 (1.5-2.5) mg/dL Total Bilirubin 1.2 H (0.2-1.0) mg/dL AST 160 H (15-37) U/L ALT 127 H (12-78) U/L Alkaline Phosphatase 131 H (45-117) U/L Total Protein 8.6 H (6.4-8.2) g/dL Albumin 4.9 (3.4-5.0) g/dL TSH 1.110 (0.358-3.740) uIU/mL Urine Opiates Screen Neg (Neg) Ur Barbiturates Screen Neg (Neg) Ur Amphetamines Screen Neg (Neg) U Benzodiazepines Scrn Pos H (Neg) Urine Cocaine Screen Neg (Neg) U Cannabinoids Screen Pos H (Neg) Serum Alcohol 67 H (0-5) mg/dL
[2018-12-25] MEDS ORDERED: LORazepam 1 MG Tablet PO PRN (19:35)
[2018-12-25] MEDS ORDERED: Haloperidol Inj 5 MG/ML Ampul IV.PUSH PRN (19:35)
[2018-12-25 20:32] LABS: Amphetamine Screen,Urine Neg (Neg); Barbiturate Screen,Urine Neg (Neg); Cannabinoid Screen,Urine Pos (Neg); Cocaine Screen,Urine Neg (Neg)
[2018-12-25 20:33] LABS: Opiate Screen,Urine Neg (Neg)
[2018-12-25] MEDS: Aluminum/Magnesium/Simethacone Susp 30 ML UDC PO PRN (23:37)
[2018-12-26] MEDS: Aluminum/Magnesium/Simethacone Susp 30 ML UDC PO PRN (04:25)
[2018-12-26] MEDS ORDERED: LORazepam 1 MG Tablet PO PRN (07:59)
[2018-12-26] MEDS ORDERED: Haloperidol Inj 5 MG/ML Ampul IV.PUSH PRN (08:08)
[2018-12-26] MEDS: Loperamide 2 MG Capsule PO PRN ×3 (09:17→22:16)
--- NOTE | 2018-12-26 10:43 | P.HPPSY ---
Provisional Diagnosis Admission Date: December 25, 2018 20:49 [place] I.: Alcohol dependent with alcohol induced mood disorder Competence Certification of Person's Competence To Provide Express and Informed Consent I have personally examined Surjit Ann, a person being served at [facility] on, December 26, 2018 1034. Express and informed consent means consent voluntarily given in writing, by a competent person, after sufficient explanation and disclosure of the subject matter involved to enable the person to make a knowing and willful decision without any element of force, fraud, deceit, duress, or other form of constraint or coercion. This person is 18 years of age or older, is not now known to be incompetent to consent to treatment with a guardian advocate, and does not have a health care surrogate or proxy currently making medical treatment decisions. I have found this person to be one of the following: [] Competent to provide express and informed consent, as defined above, for voluntary admission to this facility and is competent to provide express and informed consent for treatment. He/she has the consistent capacity to make well reasoned, willful, and knowing decisions concerning his or her medical or mental health treatment. The person fully and consistently understands the purpose of the admission for examination/placement and is fully capable of personally exercising all rights assured [place] [] Incompetent to provide express and informed consent to voluntary admission, and this is incompetent to provide express and informed consent to treatment. The person must be transferred to involuntary status and a petition for a guardian advocate filed with the Circuit Court. [] Refusing to provide express and informed consent to voluntary admission but is competent to provide express and informed consent for treatment. The person must be discharged or transferred to involuntary status. Form shall be completed within 24 hours of a person's arrival at the receiving facility and filed in the clinical record of each person: 1. Admitted on a voluntary basis 2. Permitted to provide express and informed consent to his/her own treatment 3. Allowed to transfer from involuntary to voluntary status 4. Prior to permitting a person to consent to his or her own treatment after having been previously found incompetent to consent to treatment. History of Present Illness Capacity: Has capacity Chief Complaint: Depressed angry and withdrawal from alcohol History of Present Illness: HPI: Patient is 23-year-old male with a history of possible admissions for intoxication and withdrawal, currently in active withdrawal after his father had him Romo acted to the hospital. The father apparently broke into the patient's place of residence and found the patient intoxicated with a room that indicated that patient was not taking care of himself. He was living with garbage and debris scattered throughout his apartment and was not eating. The patient complains of resenting his father's breaking into his apartment and shows absolutely no appreciation of the father's intent to save his life. Patient has a history of having had delirium tremens and apparently has little interest in altering his way of life at this time. Patient is extremely demanding asking for Zofran for his vomiting asking for Imodium for diarrhea and a nicotine patch. Patient obviously has been through this many times before and does not seem appreciative of any efforts to alter his way of life. - Inpatient Certification I certify that the inpatient services were ordered in accordance with Medicare regulations governing the order. This includes certification that hospital inpatient services are reasonable and necessary and in the case of services not specified as inpatient-only under 42 CFR 419.22(n), that they are appropriately provided as inpatient services in accordance to with the 2-midnight benchmark under 43 CFR 412.3(e) I certify that inpatient psychiatric hospital services are medically necessary. Evaluation and treatment and/or diagnostic testing are expected to improve the patient's condition. The patient needs on a daily basis, active treatment furnished directly by or requiring the supervision of inpatient psychiatric facility personnel. Estimated Total Length of Stay (Days): 7 Plans for Post Hospital Care: Home Review of Systems Nausea and vomiting and diarrhea along with sweating elevated pulse rate and shakiness. PMF - History History Provided By: Patient - Medical History Medical History: Medical History (Last Updated 12/25/18 @ 16:10 by Modesta Cadena RN) Asthma IBS (irritable bowel syndrome) Anxiety - Tobacco History Second Hand Smoke Exposure: No Tobacco Use In Past 30 Days: Yes Smoking Status: Current every day smoker Tobacco Type: Cigarettes - Alcohol History How Often Do You Have a Drink Containing Alcohol: 4 or more times a week - Substance Use History Substance History: Active Abuse - Substance Use Type Marijuana Status: Active Route Used: Inhalation Frequency: Once a month Last Used: Last Reason for Use: Calm Down, Feels Good Comment: "I have panic attacks and it helps" - Travel History Recent Travel in the [facility] Within the Last 8 Weeks: No Recent Travel Out of the Country Within the Last 8 Weeks: No - Immunization History Tetanus Immunization: Unsure Hx Influenza Vaccine This Season: No Medications and Allergies Active Medications: Active Medications Al Hydrox/Mg Hydrox/Simethicone (Mag-Al Plus Susp Liq) 30 ml PO Q6H PRN PRN Reason: DYSPEPSIA Last Admin: 12/26/18 04:25 Dose: 30 ml Flumazenil (Romazicon Inj) 0.2 mg IV.PUSH Q1M PRN PRN Reason: OVERSEDATION Haloperidol Lactate (Haldol Inj) 1 mg IV.PUSH Q15M PRN PRN Reason: for severe agitation Loperamide HCl (Imodium) 2 mg PO Q4H PRN PRN Reason: DIARRHEA Last Admin: 12/26/18 09:17 Dose: 2 mg Lorazepam (Ativan) 2 mg PO Q6H PRN PRN Reason: WITHDRAWAL Lorazepam (Ativan) 1 mg PO Q4H PRN PRN Reason: for CIWA 8-10 Lorazepam (Ativan) 2 mg PO Q2H PRN PRN Reason: for CIWA 11-14 Last Admin: 12/26/18 08:34 Dose: 2 mg Lorazepam (Ativan Inj) 2 mg IV.PUSH Q2H PRN PRN Reason: for CIWA 11-14 Lorazepam (Ativan Inj) 2 mg IV.PUSH Q1H PRN PRN Reason: for CIWA 15-20 Lorazepam (Ativan Inj) 2 mg IV.PUSH Q15M PRN PRN Reason: for CIWA > 20 Lorazepam (Ativan Inj) 1 mg IV.PUSH Q4H PRN PRN Reason: for CIWA 8-10 Nicotine (Habitrol 21 Mg Patch.24 Hr) 1 patch T-DERMAL DAILY RITU Last Admin: 12/26/18 10:32 Dose: Not Given Ondansetron HCl (Zofran Odt) 8 mg PO Q6H PRN PRN Reason: VOMITING Last Admin: 12/26/18 09:17 Dose: 8 mg Sennosides (Senokot) 17.2 mg PO Q12H PRN PRN Reason: Moderate Constipation Allergies Allergy/AdvReac Type Severity Reaction Status Date / Time No Known Allergies Allergy Verified 12/25/18 16:10 Home Medications Medication Instructions Recorded Confirmed Type alprazolam 2 mg PO PRN PRN 12/25/18 12/25/18 History Results - Labs CBC & Chem 7: 12/25/18 15:28 12/25/18 15:28 Labs: Laboratory Results - last 24 hr 12/25/18 12/25/18 12/25/18 15:28 15:28 20:00 WBC 6.5 RBC 4.11 L Hgb 15.0 Hct 43.2 MCV 105.0 H MCH 36.5 H MCHC 34.7 RDW 12.1 Plt Count 266 MPV 9.8 Neut % (Auto) 37.4 Lymph % (Auto) 46.9 H [place] % (Auto) 7.4 Eos % (Auto) 7.0 H Baso % (Auto) 1.3 Neut # (Auto) 2.4 Lymph # (Auto) 3.1 [place] # (Auto) 0.5 Eos # (Auto) 0.5 H Baso # (Auto) 0.1 WBC Differential . Differential Comment Auto diff final Sodium 138 Potassium 3.4 L Chloride 102 Carbon Dioxide 24.7 Anion Gap 11 BUN 4 L Creatinine 0.97 Estimated GFR Greater than 89 Random Glucose 89 Calcium 9.5 Magnesium 1.9 Total Bilirubin 1.2 H AST 160 H ALT 127 H Alkaline Phosphatase 131 H Total Protein 8.6 H Albumin 4.9 TSH 1.110 Urine Opiates Screen Neg Ur Barbiturates Screen Neg Ur Amphetamines Screen Neg U Benzodiazepines Scrn Pos H Urine Cocaine Screen Neg U Cannabinoids Screen Pos H Serum Alcohol 67 H Exam Vital signs: Vital Signs 12/25/18 15:22 12/25/18 15:23 12/25/18 15:27 Temperature 98.5 F 98.5 F Pulse Rate 143 H 143 H 90 Respiratory Rate 18 18 18 Blood Pressure 112/68 112/68 117/75 Pulse Oximetry 100 100 100 12/25/18 21:52 12/26/18 05:39 Temperature 98 F 97.5 F L Pulse Rate 101 H 104 H Respiratory Rate 17 17 Blood Pressure 129/75 123/80 Pulse Oximetry 98 99 Intake & Output 12/25/18 12/26/18 12/26/18 18:59 06:59 18:59 Weight 58.967 kg 56.69 kg Other: Weight On Admission 56.699 kg Mental Status Examination Appearance: Dirty, Malodorous Consciousness: Alert Orientation: x4 Motor Activity: Normal gait Speech: Unremarkable Language: Adequate Fund of Knowledge: Adequate Memory: Unremarkable Mood: Sad Affect: Sad Thought Process & Associations: Intact, Logical, Goal directed Thought Content: Appropriate Hallucination Type: None Delusion Type: None Suicidal Ideation: No Suicidal Plan: No Suicidal Intention: No Homicidal Ideation: No Homicidal Plan: No Homicidal Intention: No Insight: Poor Judgment: Impulsive Assessment and Plan - Plan Plan: Estimated LOS: [] days Current plan is for detox. Patient will be recommended for residential inpatient treatment because of his long-term history of alcohol little in the way of motivation for change. There will be suggested to the family that they obtain [place] act Justification for Continued Inpatient Stay: Patient is in acute withdrawal and cannot be managed at a lower level of care
--- NOTE | 2018-12-26 13:39 | P.CONPSY ---
Provisional Diagnosis Admission Date: December 25, 2018 20:49 [place] I.: Alcohol dependent with alcohol induced mood disorder History of Present Illness Service: psychiatry Primary Care Provider: No Primary Care Physician History of Present Illness: HPI: Patient is 23-year-old male with a history of possible admissions for intoxication and withdrawal, currently in active withdrawal after his father had him Romo acted to the hospital. The father apparently broke into the patient's place of residence and found the patient intoxicated with a room that indicated that patient was not taking care of himself. He was living with garbage and debris scattered throughout his apartment and was not eating. The patient complains of resenting his father's breaking into his apartment and shows absolutely no appreciation of the father's intent to save his life. Patient has a history of having had delirium tremens and apparently has little interest in altering his way of life at this time. Patient is extremely demanding asking for Zofran for his vomiting asking for Imodium for diarrhea and a nicotine patch. Patient obviously has been through this many times before and does not seem appreciative of any efforts to alter his way of life. The patient is a 23-year-old man, with a psychiatric history of depression, alcohol use disorder, history of severe withdrawal, DTs, alcoholic hallucinosis who was admitted on the Romo act due to SI and intermittent. Consulted to me for second opinion. The patient was seen inside his room. The patient is calm, cooperative. He says that he is here because family has been concerned about him. He said that he has been drinking a lot of alcohol lately. But, he reports to be in a good mood, he denies depression, denies anxiety, denies visual and auditory hallucinations. Denies suicidal and homicidal ideation. The patient looks disheveled, malodorous, but he is fully oriented x3. PMFSH - History History Provided By: Patient - Medical History Medical History: Medical History (Last Updated 12/25/18 @ 16:10 by Modesta Cadena RN) Asthma IBS (irritable bowel syndrome) Anxiety - Tobacco History Second Hand Smoke Exposure: No Tobacco Use In Past 30 Days: Yes Smoking Status: Current every day smoker Tobacco Type: Cigarettes - Alcohol History How Often Do You Have a Drink Containing Alcohol: 4 or more times a week - Substance Use History Substance History: Active Abuse - Substance Use Type Marijuana Status: Active Route Used: Inhalation Frequency: Once a month Last Used: Last Reason for Use: Calm Down, Feels Good Comment: "I have panic attacks and it helps" Alcohol Status: Active Route Used: By Mouth Reason for Use: Calm Down Comment: "couple times a month". Patient reports previous "alcohol problem", patient describes drinking "15 drinks in about three days...sometimes it was all 15 drinks in the same day". Patient reports "heavily drinking" from [facility] 17[facility]19 [facility] old. Other Status: Active Route Used: By Mouth Comment: Patient reports smoking [employer] 7-10 cigarettes per day. - Travel History Recent Travel in the [place] Within the Last 8 Weeks: No Recent Travel Out of the Country Within the Last 8 Weeks: No - Immunization History Tetanus Immunization: Unsure Hx Influenza Vaccine This Season: No Medications and Allergies Active Medications: Active Medications Al Hydrox/Mg Hydrox/Simethicone (Mag-Al Plus Susp Liq) 30 ml PO Q6H PRN PRN Reason: DYSPEPSIA Last Admin: 12/26/18 04:25 Dose: 30 ml Flumazenil (Romazicon Inj) 0.2 mg IV.PUSH Q1M PRN PRN Reason: OVERSEDATION Haloperidol Lactate (Haldol Inj) 1 mg IV.PUSH Q15M PRN PRN Reason: for severe agitation Loperamide HCl (Imodium) 2 mg PO Q4H PRN PRN Reason: DIARRHEA Last Admin: 12/26/18 09:17 Dose: 2 mg Lorazepam (Ativan) 2 mg PO Q6H PRN PRN Reason: WITHDRAWAL Lorazepam (Ativan) 1 mg PO Q4H PRN PRN Reason: for CIWA 8-10 Lorazepam (Ativan) 2 mg PO Q2H PRN PRN Reason: for CIWA 11-14 Last Admin: 12/26/18 08:34 Dose: 2 mg Lorazepam (Ativan Inj) 2 mg IV.PUSH Q2H PRN PRN Reason: for CIWA 11-14 Lorazepam (Ativan Inj) 2 mg IV.PUSH Q1H PRN PRN Reason: for CIWA 15-20 Lorazepam (Ativan Inj) 2 mg IV.PUSH Q15M PRN PRN Reason: for CIWA > 20 Lorazepam (Ativan Inj) 1 mg IV.PUSH Q4H PRN PRN Reason: for CIWA 8-10 Lorazepam (Ativan Inj) 2 mg IM Q2H PRN PRN Reason: CIWA 11-14 IF UNABLE PO OR IV Lorazepam (Ativan Inj) 2 mg IM Q1H PRN PRN Reason: CIWA 15-20 IF UNABLE PO OR IV Lorazepam (Ativan Inj) 2 mg IM Q15M PRN PRN Reason: CIWA >20 IF UNABLE PO OR IV Last Admin: 12/26/18 12:28 Dose: 2 mg Lorazepam (Ativan Inj) 1 mg IM Q4H PRN PRN Reason: CIWA 8-10 IF UNABLE PO OR IV Nicotine (Habitrol 21 Mg Patch.24 Hr) 1 patch T-DERMAL DAILY RITU Last Admin: 12/26/18 12:38 Dose: 1 patch Ondansetron HCl (Zofran Odt) 8 mg PO Q6H PRN PRN Reason: VOMITING Last Admin: 12/26/18 09:17 Dose: 8 mg Sennosides (Senokot) 17.2 mg PO Q12H PRN PRN Reason: Moderate Constipation Allergies Allergy/AdvReac Type Severity Reaction Status Date / Time No Known Allergies Allergy Verified 12/25/18 16:10 Home Medications Medication Instructions Recorded Confirmed Type alprazolam 2 mg PO PRN PRN 12/25/18 12/25/18 History Exam Vital signs: Vital Signs 12/25/18 15:22 12/25/18 15:23 12/25/18 15:27 Temperature 98.5 F 98.5 F Pulse Rate 143 H 143 H 90 Respiratory Rate 18 18 18 Blood Pressure 112/68 112/68 117/75 Pulse Oximetry 100 100 100 12/25/18 21:52 12/26/18 05:39 Temperature 98 F 97.5 F L Pulse Rate 101 H 104 H Respiratory Rate 17 17 Blood Pressure 129/75 123/80 Pulse Oximetry 98 99 Intake & Output 12/25/18 12/26/18 12/26/18 18:59 06:59 18:59 Intake Total 360 / 360 Balance 360 / 360 Weight 58.967 kg 56.69 kg Intake: Oral 360 / 360 Other: Weight On Admission 56.699 kg Mental Status Examination Appearance: Dirty, Malodorous Consciousness: Alert Orientation: x4 Motor Activity: Normal gait Speech: Unremarkable Language: Adequate Fund of Knowledge: Adequate Memory: Unremarkable Mood: Sad Affect: Sad Thought Process & Associations: Intact, Logical, Goal directed Thought Content: Appropriate Hallucination Type: None Delusion Type: None Suicidal Ideation: No Suicidal Plan: No Suicidal Intention: No Homicidal Ideation: No Homicidal Plan: No Homicidal Intention: No Insight: Poor Judgment: Impulsive Assessment and Plan - Assessment (1) Alcohol-induced mood disorder Code(s): F10.94 - Alcohol use, unspecified with alcohol-induced mood disorder Status: Acute - Plan Plan: Patient was seen today for psychiatric evaluation of a second opinion. I completely agree and concur with assessment and plan. Consult appreciated. Justification for Continued Inpatient Stay: continue admission
[2018-12-27] MEDS: LORazepam 1 MG Tablet PO PRN ×2 (09:05→21:19)
[2018-12-27] MEDS: Loperamide 2 MG Capsule PO PRN ×3 (09:05→21:19)
--- NOTE | 2018-12-27 09:51 | P.PNPSY ---
Subjective Chief Complaint: Depressed angry and withdrawal from alcohol Remarks: Subjective: Patient lying the bed wide awake when I saw him this morning. His first complaint was that he did not sleep because he did not have his trazodone. As for the vomiting and diarrhea this apparently has disappeared and the patient is showing further improvement in his see was score. financial services sales representative and the father who was instructed that if he was to pursue the patient' s treatment he would need to get a [place] act from the court. The patient remains in tidal arrogant and shows marked narcissistic and sociopathic trends. Prognosis is poor. Patient has little to gain from his pursuit of alcohol and Ativan. He seems quite content to continue getting intoxicated withdrawal in the hospital Suicide risk assessment: suggest lower than imminent risk from acute mental illness. Patient is denying suicidal ideation. There is no evidence of impairment in reality construction. Review of Systems Today complains only of insomnia because he could not have his trazodone last evening Mental Status Examination Appearance: Appropriate Consciousness: Alert Orientation: x4 Motor Activity: Normal gait Speech: Unremarkable Language: Adequate Fund of Knowledge: Adequate Memory: Unremarkable Mood: Sad Affect: Sad Thought Process & Associations: Intact, Logical, Goal directed Thought Content: Appropriate Hallucination Type: None Delusion Type: None Suicidal Ideation: No Suicidal Plan: No Suicidal Intention: No Homicidal Ideation: No Homicidal Plan: No Homicidal Intention: No Insight: Fair Judgment: Impulsive Assessment and Plan - Assessment (1) Depression, major Code(s): F32.9 - Major depressive disorder, single episode, unspecified Status : Acute (2) Alcohol-induced mood disorder Code(s): F10.94 - Alcohol use, unspecified with alcohol-induced mood disorder Status: Acute - Plan Plan: Patient was seen today for psychiatric evaluation of a second opinion. I completely agree and concur with assessment and plan. Consult appreciated. Justification for Continued Inpatient Stay: Patient will be discharged once his C was scores indicate he is safe
[2018-12-27 17:53] VITALS: O2SAT 100
[2018-12-27] MEDS ORDERED: traZODone 50 MG Tablet PO SCH (21:00)
[2018-12-28] MEDS: Loperamide 2 MG Capsule PO PRN ×2 (05:35→09:04)
[2018-12-28] MEDS: LORazepam 1 MG Tablet PO PRN ×2 (05:35→09:29)
[2018-12-28 06:03] VITALS: BP 133/63; PULSE 95; RESP 16; TEMP 97.7
--- NOTE | 2018-12-28 08:56 | P.DSPSY ---
Psychiatry Discharge Summary Inpatient Psychiatric care?: Yes Advance Directives: No Mental Health Advance Directive: No Health Care Proxy: No - Admission Admission Date: December 25, 2018 20:49 Diagnosis specificity: Alcohol intoxication alcohol withdrawal alcohol dependence Brief History: HPI: Patient is 23-year-old male with a history of possible admissions for intoxication and withdrawal, currently in active withdrawal after his father had him Romo acted to the hospital. The father apparently broke into the patient's place of residence and found the patient intoxicated with a room that indicated that patient was not taking care of himself. He was living with garbage and debris scattered throughout his apartment and was not eating. The patient complains of resenting his father's breaking into his apartment and shows absolutely no appreciation of the father's intent to save his life. Patient has a history of having had delirium tremens and apparently has little interest in altering his way of life at this time. Patient is extremely demanding asking for Zofran for his vomiting asking for Imodium for diarrhea and a nicotine patch. Patient obviously has been through this many times before and does not seem appreciative of any efforts to alter his way of life. Tobacco Use In Past 30 Days: Yes How Often Do You Have a Drink Containing Alcohol: 2 to 4 times a month Hospital Course: Hospital course: Patient was detoxed with good results. Recommendations are for alcohol dependence counseling at [facility]. Prognosis poor - Discharge Discharge Date: 12/28/18 Discharge Disposition: Home - Discharge Time > 30 minutes Mental Status Examination Appearance: Appropriate Consciousness: Alert Orientation: x4 Motor Activity: Normal gait Speech: Unremarkable Language: Adequate Fund of Knowledge: Adequate Memory: Unremarkable Mood: Sad Affect: Sad Thought Process & Associations: Intact, Logical, Goal directed Thought Content: Appropriate Hallucination Type: None Delusion Type: None Suicidal Ideation: No Suicidal Plan: No Suicidal Intention: No Homicidal Ideation: No Homicidal Plan: No Homicidal Intention: No Insight: Fair Judgment: Impulsive Discharge/Advance Care Plan - Results Vital Signs: Last Vital Signs Temp 97.7 F 12/28/18 06:03 Pulse 95 H 12/28/18 06:03 Resp 16 12/28/18 06:03 BP 133/63 12/28/18 06:03 Pulse Ox 100 12/28/18 06:03 Lab Results: Laboratory Results TSH 1.110 uIU/mL (0.358-3.740) 12/25/18 15:28 Summary of Procedures: None Pending Results: None - Medications Number of antipsychotic medications at discharge: 0 - Discharge Care Plan Goals to Promote Your Health: * To prevent worsening of your condition and complications * To maintain your health at the optimal level Directions to Meet Your Goals: Take your medications as prescribed Follow your dietary instruction Follow activity as directed Keep your appointments as scheduled Take your immunizations and boosters as scheduled If your symptoms worsen call your PCP, if no PCP go to Urgent Care Center or Emergency Room For 30/05 questions related to your inpatient stay or results of tests pending at discharge, please contact Dr. Naren Diaz MD at Smoking is Dangerous to Your Health. Avoid second hand smoking
== END 2018-12-28 11:45 | disposition home or self-care (01) | DRG 881 ==
LOC: NEPJ 15:13 → NEDA 20:49 → H260 21:42
PROVIDERS: ADMIT Psychiatry & Neurology Child & Adolescent Psychiatry; ATTEND Psychiatry & Neurology Child & Adolescent Psychiatry
CPT/HCPCS: 80053; 80307; 83735; 84443; 85025; 90791; 99285; J2060